=== PATIENT | female | born 1950 | race Two or more races ===

== ENCOUNTER 2020-11-18 10:28 | Emergency (ER) | payer OTHER ==
[~2020-11-18] VITALS: Ht 152.4 cm; Wt 55.8 kg
[2020-11-18] MEDS ORDERED: LOSARTAN POTAS100 MG PO (10:52)
== END 2020-11-18 12:26 | disposition home or self-care (01) ==
LOC: ER 10:28
DX: K29.70 Gastritis, unspecified, without bleeding (principal)